=== PATIENT | male | born 1950 | race Caucasian/White ===

== ENCOUNTER 2018-05-11 07:36 | Observation (INO) | payer MEDICARE, OTHER ==
[2018-05-11] VITALS (16 sets, daily range): BP systolic 119–171; BP diastolic 60–93
[~2018-05-11] VITALS: Ht 175.3 cm; Wt 114.3 kg
--- NOTE | ~2018-05-11 | H ---
[address] [address] HISTORY AND PHYSICAL Name: AARON RAPP Room: [address] Yesica Peterson#: [id number] Admission: 05/11/18 Attend Phys: Scar Summers MD, Discharge: 05/12/18 Date of : 50 Report #: [id number] THIS REPORT FOR: //name// Please refer to the History and Physical performed in the physician's office. By: [id number] Records Staff BRIAN /JEN
[~2018-05-11 07:36] MED LIST: ALLOPURINOL 30300 M1 PO; ASPIRIN81 M2; B12INJ; CENTRUM SILVER1 EAC2 PO; COLACE100 MG PO; COQ-10100 MG PO; ELIQUIS5 MG PO; GLUCOSAMINE HC500 MG PO; HYDROCODON-ACE1 EACH; HYDROXYCHLOROQ200 M1 PO; LISINOPRIL-HCT1 EAC2 PO; LISINOPRIL20 MG PO; LOPRESSOR25 PO; MULTAQ 400 MG400 MG PO; MULTAQ400 MG PO; NITROGLYCERIN0.4 MG SUBLING; OMEGA 3 FISH O1 EACH PO; OXYCODONE HCL 55 MG PO; PEPCID40 MG PO; POTASSIUM GLUCO99 M1 PO; PRAVACHOL40 MG PO; SIMVASTATIN40 MG; TART CHERRY E1000 MG PO; TURMERIC500 M1 PO; VITAMIN D2000 UNIT PO
[2018-05-11 08:08] LABS: HEMATOCRIT 42.2 % (42.0-52.0); HEMOGLOBIN 14.4 gm/dL (14.0-18.0); MCH 33.9 pg (26.0-34.0); MCHC 34.2 g/dL (28.0-37.0); MCV 99.1 fL (80.0-100.0); MPV 7.5 fl. (7.2-11.1); RBC 4.26 mil/uL (4.50-6.00); RDW-CV 12.3 % (10.5-14.5)
[2018-05-11 08:13] LABS: ANION GAP 10 mmol/L (7-16); BUN 17 mg/dL (7-18); CALCIUM 8.7 mg/dL (8.5-10.1); CHLORIDE 104 mmol/L (98-107); CO2 25 mmol/L (21-32); CREATININE 1.1 mg/dL (0.6-1.3); GLUCOSE 118 mg/dL (70-99); POTASSIUM 4.3 mmol/L (3.5-5.1); SODIUM 139 mmol/L (136-145)
[2018-05-11 08:16] LABS: APTT 30.7 Seconds (25.0-31.3)
[2018-05-11 08:17] LABS: ALBUMIN 3.8 g/dL (3.4-5.0); ALKALINE PHOSPHATASE 72 U/L (46-116); CHOLESTEROL 144 mg/dL (<200); HDL CHOLESTEROL 43 mg/dL (>40); LDL CHOLESTEROL 82 mg/dL (<100); SGOT 23 U/L (15-37); SGPT 34 U/L (30-65); TC:HDL 3.3 Ratio (Not establshd); TOTAL BILIRUBIN 0.7 mg/dL (<0.1-1.0); TOTAL PROTEIN 7.6 g/dL (6.4-8.2); TRIGLYCERIDE 98 mg/dL (<150); VLDL 20 mg/dL (<40)
[2018-05-11 08:20] LABS: SERUM ASSESSMENT Clear
[2018-05-11] MEDS ORDERED: GLUCOSAMINE HC500 MG PO (12:45)
[2018-05-11] MEDS ORDERED: OMEGA-31000 M1 PO (12:46)
[2018-05-11] MEDS ORDERED: VITAMIN B-121000 MCG PO (12:47)
--- NOTE | 2018-05-11 16:29 | EKG ---
[place] [address] ELECTROCARDIOGRAM REPORT Name: AARON RAPP Room: [address] M.R.#: [id number] Admission: 05/11/18 Attend Phys: Scar Summers MD, Discharge: Date of : 50 Report #: [id number] THIS REPORT FOR: //name// [facility] Test Date: 2018-05-11 Test Time: 08:52:10 Pat Name: AARON CRAWFORDB Department: Room: [facility] Gender: M Picu Nurse: : 1950 Requested By: Scar Summers Order Number: [id number] Natan MD: Scar Summers Measurements Intervals [place] Rate: 49 P: 45 HI: 204 QRS: 29 QRSD: 96 T: 10 QT: 480 QTc: 434 Interpretive Statements Sinus bradycardia Compared to ECG 11/12/2016 13:40:38 Sinus rate has decreased Electronically Signed On 05-11-2018 16:29:14 CDT by Scar Summers [email or web address] <ELECTRONICALLY SIGNED> By: Scar Summers MD, [facility] 05/11/18 1629 0852 0852 Scar Summers MD, FACC /EPI
--- NOTE | 2018-05-11 16:31 | EKG ---
[place] [address] ELECTROCARDIOGRAM REPORT Name: AARON RAPP Room: [address] M.R.#: [id number] Admission: 05/11/18 Attend Phys: Scar Summers MD, Discharge: Date of : 50 Report #: [id number] THIS REPORT FOR: //name// 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 Species Specialist: : 1950 Requested By: Scar Summers Order Number: [id number] Natan MD: Scar Summers Measurements Intervals [place] Rate: 52 P: 60 [place]: 198 QRS: 17 QRSD: 96 T: 8 QT: 466 QTc: 434 Interpretive Statements Sinus rhythm Probable left ventricular hypertrophy Baseline wander in lead(s) II Compared to ECG 11/12/2016 13:40:38 No significant changes Electronically Signed On 05-11-2018 16:31:37 CDT by Scar Summers [email or web address] <ELECTRONICALLY SIGNED> By: Scar Summers MD, [facility] 05/11/18 1631 1345 1345 Scar Summers MD, [facility] /EPI
[2018-05-12] VITALS: BP 158/65
[2018-05-12 04:00] VITALS: BP 161/75
[2018-05-12 05:01] LABS: HEMATOCRIT 39.6 % (42.0-52.0); HEMOGLOBIN 13.7 gm/dL (14.0-18.0); MCH 34.2 pg (26.0-34.0); MCHC 34.5 g/dL (28.0-37.0); MPV 7.1 fl. (7.2-11.1); RDW-CV 12.6 % (10.5-14.5); WBC 7.3 thou/uL (4.0-11.0)
[2018-05-12 05:53] LABS: ALBUMIN 3.4 g/dL (3.4-5.0); ALKALINE PHOSPHATASE 54 U/L (46-116); ANION GAP 8 mmol/L (7-16); BUN 14 mg/dL (7-18); CHLORIDE 107 mmol/L (98-107); CO2 25 mmol/L (21-32); CREATININE 1.1 mg/dL (0.6-1.3); GLUCOSE 106 mg/dL (70-99); POTASSIUM 4.2 mmol/L (3.5-5.1); SGOT 22 U/L (15-37); SGPT 31 U/L (30-65); SODIUM 140 mmol/L (136-145); TOTAL BILIRUBIN 0.7 mg/dL (<0.1-1.0); TROPONIN-I LEVEL <0.06 ng/mL (<0.06)
--- NOTE | 2018-05-12 05:58 | NUR ---
ASSUMED PT CARE REPORT RECEIVED FROM NURSE. PT IS POST CARDIAC CATH. RIGHT WRIST DRESSING IN INTACT WITH A VERY SCANT AREA OF BLOOD AND IT IS CLEAN. NS AT 100 PER HOUR IV LINE IS PATENT. PT SLEPT WELL DURING THE NIGHT. SBRADY ON THE MONITOR SINCE THE BEGINNING OF SHIFT, METROPOLOL DOSE NOT GIVEN LAST NIGHT FOR LOW HR. WILL CONTINUW TO MONITOR.
[2018-05-12 07:32] VITALS: BP 140/67
[2018-05-12] MEDS ORDERED: EFFIENT10 MG PO (09:52)
[2018-05-12] MEDS ORDERED: ASPIR-LOW81 MG PO (09:53)
--- NOTE | 2018-05-12 10:47 | EKG ---
[place] [address] ELECTROCARDIOGRAM REPORT Name: AARON RAPP Room: [address] M..#: [id number] Admission: 05/11/18 Attend Phys: Scar Summers MD, Discharge: 05/12/18 Date of : 50 Report #: [id number] THIS REPORT FOR: //name// [facility] Test Date: 2018-05-12 Test Time: 08:55:37 Pat Name: AARON RAPP Department: Room: [facility] Gender: M Baler Operator: : 1950 Requested By: Scar Summers Order Number: [id number] Reading MD: Boone Rodriguez Measurements Intervals [place] Rate: 58 P: 43 MS: 182 QRS: 19 QRSD: 94 T: 9 QT: 456 QTc: 448 Interpretive Statements Sinus rhythm Borderline ST elevation, anterior leads Compared to ECG 05/11/2018 13:45:56 ST (T wave) deviation now present Electronically Signed On 05-12-2018 10:47:09 CDT by Boone Rodriguez [email or web address] <ELECTRONICALLY SIGNED> By: Boone Rodriguez MD, FACC 05/12/18 1047 0855 0855 Boone Rodriguez MD, [facility] /EPI
--- NOTE | 2018-05-12 10:55 | CARD ---
[address] [address] CARDIAC CATH REPORT Name: AARON RAPP Floridalma Room: [address] Yesica Peterson#: [id number] Admission: 05/11/18 Attend Phys: Scar Summers MD, Discharge: 05/12/18 Date of : 50 Report #: [id number] THIS REPORT FOR: //name// APPROVED REPORT Study performed: 05/11/2018 08:02:19 Patient Details Patient Status: Out-Patient Room #: The patient is a 67 year-old male Event Personnel Scar Summers Chipper Feeder, Jennifer Rodriguez RN Molder, Geneva Woodard RTR Monitor, Db Brennan Scrub Procedures Performed Art Access - R radial artery Coronary Angiography Only CORANG PTCA Single Vessel DIAG PCISINGLE Hemostasis with Hemoband Indication Unstable angina Risk Factors Coronary Artery Disease Previous Procedures/Diagnoses Previous PCI Admission/Lab Medications/Medications given during procedure Aspirin, Angiomax IV 17 ml, Angiomax Drip IV 40 ml per hr, Aspirin PO 162 mg, Heparin IV 5000 units Procedure Narrative The patient was brought electively to the Cardiac Catheterization Laboratory and was prepped and draped in a sterile manner. The right wrist was infiltrated with 2% Lidocaine subcutaneous anesthesia. A Slender Glidesheath sheath was inserted into the right radial artery. Coronary angiography was performed using coronary diagnostic catheters. The left coronary system was accessed and visualized with a Diagnostic 5Fr JL 3.5 catheter. The left ventricle was accessed and visualized with a Diagnostic 5Fr pigtail catheter. Left ventricular/Aortic Valve gradient assessed via catheter pullback. The patient tolerated the procedure well and there were no complications associated with the procedure. [place] [address] CARDIAC CATH REPORT Name: AARON RAPP [address]: [address] [id number] Admission: 05/11/18 Attend Phys: Scar Summers MD, Discharge: 05/12/18 Date of : 50 Report #: [id number] Intraoperative Conscious Sedation Sedation start time: 9:42 Case end Time: 10:25 Fentanyl 50 mcg Versed 2 mg Fluoro Time: 10.5 minutes Dose: DAP 339193 cGycm2 2330 mGy Contrast Type and Amount: Visipaque 350 ml Diagnostic Cath Left Main 0% narrowing LAD 30% proximal mid and distal LAD narrowings with 90% stenosis in the midportion of the prominent second diagonal branch and 40% first diagonal narrowing Circumflex Dominant vessel with 30% proximal and distal narrowing with 30% narrowing of the posterior descending branch Right Coronary Previously defined small nondominant vessel without significant narrowing Left Ventriculography The left ventricle is normal in size with normal contractility. The left ventricular ejection fraction is estimated to be 60%. Left ventricular wall motion abnormalities are not present. There is no mitral insufficiency. Hemodynamics The aortic pressure is 124/68 mmHg with a mean of 91 mmHg. The left ventricular pressure is 130/4 mmHg with a mean of mmHg. The left ventricular end diastolic pressure is 13 mmHg. PCI Technique Lesion Anticoagulation was achieved with Angiomax. Percutaneous coronary intervention was performed on the second diagnonal branch segment. The lesion stenosis prior to intervention was 90% with PRIYA 3 flow. A 6F XB LAD 3.5 Guide Catheter was used to engage the ostium. A IG: DinnrFlex 180CM Interventional Guidewire was used to cross the lesion. BALLOON DILATION A Balloon catheter Mini Trek RX 2.0 X 8 was inserted and inflated up to 12.00atm for 12seconds. STENT DEPLOYMENT A drug-eluting stent Elias RX Stent 2.0X12mm was inserted and inflated up to 12.00atm for 11seconds. Additional Inflation: 15.00[place] [address] CARDIAC CATH REPORT Name: AARON RAPP [address]: [address]#: [id number] Admission: 05/11/18 Attend Phys: Scar Summers MD, Discharge: 05/12/18 Date of : 50 Report #: [id number] 8seconds. Additional Inflation: 16.00atm for 10seconds. Final angiography reveals 0 % stenosis with PRIYA 3 flow. Conclusion #1 significant coronary artery disease characterized by the following: A 30% proximal mid and distal LAD narrowing with 90% stenosis the midportion of the second diagonal branch and 40% first diagonal narrowing B dominant circumflex with 30% proximal and distal narrowing and 30% narrowing of the posterior descending branch C small nondominant right coronary artery #2 normal left ventricular function, estimated ejection fraction being 60% #3 successful percutaneous coronary intervention with deployment of a drug-eluting stent at site of 90% second diagonal stenosis with 0% residual narrowing and PRIYA-3 flow the distal vessel Recommendations Aggressive Medical Therapy Medications Administered Aspirin (any) Prasugrel Diagnostic Cath Approved by: Scar Summers MD Date/Time: 05/12/2018 10:54:46 <ELECTRONICALLY SIGNED> By: Scar Summers MD, [facility] 05/12/18 1055 1055 1055Scar Summers MD, FAC /INF
[2018-05-12 10:57] VITALS: BP 171/93
--- NOTE | 2018-05-21 13:03 | D ---
[address] [address] DISCHARGE SUMMARY Name: AARON RAPP Room: [address] Yesica Peterson#: [id number] Admission: 05/11/18 Attend Phys: Scar Summers MD, Discharge: 05/12/18 Date of : 50 Report #: [id number] THIS REPORT FOR: //name// CC: Dru Summers DATE OF SERVICE: 05/12/2018 FINAL DISCHARGE DIAGNOSES: 1. Coronary artery disease. 2. Status post percutaneous coronary intervention of the second diagonal branch of the left anterior descending. 3. Paroxysmal atrial fibrillation. 4. Hypertension. 5. Hyperlipoproteinemia. 6. Gastroesophageal reflux disease. PROCEDURES: 05/11/2018 -- left heart catheterization, selective coronary arteriography and percutaneous coronary intervention to the second diagonal branch of the LAD. The patient is a 67-year-old male with known coronary artery disease by prior catheterization. He also has paroxysmal atrial fibrillation. He notes with tachycardia, he developed central chest discomfort compatible angina and has noted relatively frequent episodes of late. Prior catheterization demonstrated 90% second diagonal stenosis, which was not approached in a preoperative setting. He has continued to have relatively frequent episodes of angina in the context of hypertension and hyperlipoproteinemia and in that clinical history, cardiac catheterization was performed on 05/31/2018. That study revealed mild LAD, circumflex, and right coronary narrowings with 90% stenosis of the mid portion of the second diagonal branch of the LAD. I deployed one 2.0 x 12 mm Integrity Elias stent in the second diagonal with 0% residual narrowing and PRIYA 3 flow of the distal vessel. He did well post-procedurally with good hemostasis at the right radial site of catheterization. Laboratory on 05/12/2018 revealed a sodium 140, potassium 4.2, BUN 14, creatinine 1.1, hemoglobin 13.7, white blood cell count 7300, with 169,000, platelets. Troponin less than 0.06. The patient ambulated in the hallways without difficulty and was discharged to home on 05/12/2018 on the following medications: Apixaban 5 mg b.i.d., aspirin 81 mg daily, vitamin D3 5000 units daily, vitamin B12 1000 mcg daily, dronedarone or Multaq 400 mg b.i.d., famotidine or Pepcid 20 mg daily, glucosamine 1500 mg t.i.d., hydroxychloroquine 400 mg daily, lisinopril 20 [place] [address] DISCHARGE SUMMARY Name: AARON RAPP [address] [id number] Admission: 05/11/18 Attend Phys: Scar Summers MD, Discharge: 05/12/18 Date of : 50 Report #: [id number] daily, metoprolol tartrate 25 mg b.i.d., Centrum Silver vitamin one tablet daily, omega-3 fatty acids 1000 mg b.i.d., potassium gluconate one tablet at bedtime, prasugrel or Effient 10 mg daily, and pravastatin 40 mg at bedtime. He also has p.r.n. sublingual nitroglycerin and p.r.n. oxycodone if required. The patient is scheduled to return to see Dr. Kee on 06/21/2018 and 1530 hours. Thus, the patient is discharged to home in stable condition on the aforementioned medications with followup as iterated above. <ELECTRONICALLY SIGNED> By: Aung Kee MD, [facility] 05/21/18 1303 0936 1228Jojonah Summers MD, FACC /nt
== END 2018-05-12 10:35 | disposition home or self-care (01) ==
LOC: M.CL 07:36 → M.TBA-CV 10:52 → M.2W 12:17
PROVIDERS: ADMIT Internal Medicine
DX: I25.110 Atherosclerotic heart disease of native coronary artery with unstable angina pectoris (principal); I48.0 Paroxysmal atrial fibrillation; I10 Essential (primary) hypertension; K21.9 Gastro-esophageal reflux disease without esophagitis; E78.5 Hyperlipidemia, unspecified

== ENCOUNTER 2018-05-13 00:24 | Inpatient (IN) | payer MEDICARE, OTHER ==
[2018-05-13] VITALS (9 sets, daily range): BP systolic 101–145; BP diastolic 47–83
[~2018-05-13] VITALS: Ht 152.4 cm; Wt 109.8 kg
--- NOTE | ~2018-05-13 | EKG ---
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
[~2018-05-13 00:24] MED LIST changes: +ASPIR-LOW81 MG PO; +EFFIENT10 MG PO; +OMEGA-31000 M1 PO; +VITAMIN B-121000 MCG PO
[2018-05-13 00:55] LABS: ABSOLUTE BASOPHILS 0.1 thou/uL (0.0-0.2); ABSOLUTE EOSINOPHILS 0.1 thou/uL (0.0-0.7); ABSOLUTE LYMPHOCYTES 1.7 thou/uL (0.8-5.3); ABSOLUTE MONOCYTES 1.2 thou/uL (0.0-1.2); ABSOLUTE NEUTROPHILS 7.1 thou/uL (1.6-8.1); BASOPHILS 0.7 %; EOSINOPHILS 1.3 %; HEMATOCRIT 43.2 % (42.0-52.0); HEMOGLOBIN 15.1 gm/dL (14.0-18.0); LYMPHOCYTES 16.6 %; MCH 34.1 pg (26.0-34.0); MCHC 34.8 g/dL (28.0-37.0); MCV 97.8 fL (80.0-100.0); MONOCYTES 12.2 %; MPV 7.1 fl. (7.2-11.1); NUCLEATED RBCS 0 /100WBC; PLATELET COUNT* 225 thou/uL (150-400); POLYS 69.2 %; RBC 4.42 mil/uL (4.50-6.00); RDW-CV 12.4 % (10.5-14.5); WBC 10.2 thou/uL (4.0-11.0)
[2018-05-13 00:58] LABS: ANION GAP 9 mmol/L (7-16); BUN 16 mg/dL (7-18); CALCIUM 8.8 mg/dL (8.5-10.1); CHLORIDE 103 mmol/L (98-107); CO2 23 mmol/L (21-32); CREATININE 1.2 mg/dL (0.6-1.3); GLUCOSE 113 mg/dL (70-99); POTASSIUM 3.8 mmol/L (3.5-5.1); SODIUM 135 mmol/L (136-145)
[2018-05-13 01:05] LABS: PROTIME 10.4 Seconds (9.20-11.50)
[2018-05-13 01:09] LABS: ALKALINE PHOSPHATASE 70 U/L (46-116); NT-PRO BRAIN NAT PEPTIDE 1766 pg/mL (<300); SGOT 25 U/L (15-37); SGPT 33 U/L (30-65); TOTAL PROTEIN 7.7 g/dL (6.4-8.2)
[2018-05-13 01:27] LABS: TROPONIN-I LEVEL <0.06 ng/mL (<0.06)
--- NOTE | 2018-05-13 04:39 | NUR ---
PT ADMITTED ON TELE FLOOR AT 0330 THIS AM ACCOMPANIED BY AND ER NURSE. PT IS ALERT AWAKE ORIENTED X 4. VITAL SIGNS WITHIN NORMAL LIMIT EXCEPT HR. ON CARDIZEM DRIP 10MG AFIB ON ENTRY LEVEL PARALEGAL ON O2 2 L NC. ASYMPTOMATIC. DENIES PAIN. UP AD REYES. IV NS AT 100 CC PER HOUR STARTED ORDERED. PT MADE COMFORTAFBLE. ADMISSION ASSESSEMENT AND HISTORY PERFORMED. REFER TO CHARTING. PT IS CURRENTLY ON CPAP WHICH HE WEARS REGULARLY AT HOME WHILE ASLEEP. LETA CONTINUE TO MONITOR.
--- NOTE | 2018-05-13 06:16 | NUR ---
CARDIOLOGY CONSULT DR BARNEY ORDERED EKG , SOTOLOL 80 MG BID. AND D/C METROPOLO. WILL PROCEED ORDERED.
--- NOTE | 2018-05-13 06:35 | NUR ---
EKG SHOWS SINUS RYTHM AT 0600. CARDIZEM DRIP LOWERED TO 5MG. SOTOLOL GIVEN.
--- NOTE | 2018-05-13 12:49 | EKG ---
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: HAYLEE : 1950 Requested By: Georgiana Holcomb Order Number: [id number] MD: Alvaro Leon Measurements Intervals [place] Rate: 136 P: OR: QRS: 25 QRSD: 87 T: 22 QT: 319 QTc: 480 Interpretive Statements Atrial fibrillation LVH with secondary repolarization abnormality Borderline prolonged QT interval Compared to ECG 05/12/2018 08:55:37 Left ventricular hypertrophy now present Early repolarization now present Sinus rhythm no longer present ST (T wave) deviation no longer present Electronically Signed On 05-13-2018 12:49:02 CDT by Alvaro Leon [email or web address] <ELECTRONICALLY SIGNED> By: Umberto Leon MD, [facility] 05/13/18 1249 0030 0030 Umberto Leon MD, [facility] /EPI
--- NOTE | 2018-05-13 12:50 | EKG ---
[place] [address] ELECTROCARDIOGRAM REPORT Name: AARON RAPP Room: [address] ADM IN M.R.#: [id number] Admission: 05/13/18 Attend Phys: Db Lyons MD Discharge: Date of : 50 Report #: [id number] THIS REPORT FOR: //name// [facility] Test Date: 2018-05-13 Test Time: 06:31:42 Pat Name: AARON RAPP Department: Room: [address] Gender: M Service Rig Operator: : 1950 Requested By: Umberto Leon Order Number: [id number] Reading MD: Alvaro Leon Measurements Intervals [place] Rate: 62 P: 35 [place]: 195 QRS: 28 QRSD: 89 T: 29 QT: 442 QTc: 449 Interpretive Statements Sinus rhythm Borderline ST elevation, anterolateral leads Baseline wander in lead(s) V2 Compared to ECG 05/12/2018 08:55:37 No significant changes Electronically Signed On 05-13-2018 12:50:36 CDT by Alvaro Leon [email or web address] <ELECTRONICALLY SIGNED> By: Umberto Leon MD, [facility] 05/13/18 1250 0631 0631 Umberto Leon MD, [facility] /EPI
--- NOTE | 2018-05-13 16:23 | NUR ---
CARDIZEM GTT STOPPED AT 0730 PT HEART RATE IN 50'S. CARDIOLOGY NOTIFIED. HR IN 50'S - 60'S THIS SHIFT. VSS. LISINOPRIL HELD DUE TO LOW BP. PT AMBULATING INDEPENDENLY.
--- NOTE | 2018-05-13 17:23 | NUR ---
ORTHOSTATIC BP OBTAINED AND CHARTED. ORTHOSTATIC BP NEGATIVE.
[2018-05-14] VITALS: BP 140/63
[2018-05-14 04:00] VITALS: BP 136/67
[2018-05-14 05:12] LABS: CALCIUM 8.3 mg/dL (8.5-10.1); CREATININE 1.1 mg/dL (0.6-1.3); MAGNESIUM 2.2 mg/dL (1.8-2.4); POTASSIUM 4.1 mmol/L (3.5-5.1)
--- NOTE | 2018-05-14 05:33 | NUR ---
ASSUMED PT CARE REPORT RECEIVED FROM NURSE. PT IS ALERT AWAKE ORIENTED X 4. SINUS RYTHM ON THE MONITOR. IV LINE PATENT SL. VITAL SIGNS ARE WITHIN NORMAL LIMIT. UP AD REYES. S SAQIB ON THE SPD TECH. SOTOLOL LOAD GIVEN ORDERED. PT SLEPT WELL DURING NIGHT
[2018-05-14 08:00] VITALS: BP 135/63
--- NOTE | 2018-05-14 11:01 | EKG ---
[place] [address] ELECTROCARDIOGRAM REPORT Name: AARON RAPP Room: [address] ADM IN M.R.#: [id number] Admission: 05/13/18 Attend Phys: Db Lyons MD Discharge: Date of : 50 Report #: [id number] THIS REPORT FOR: //name// [facility] Test Date: 2018-05-14 Test Time: 07:56:42 Pat Name: AARON RAPP Department: Room: [address] Gender: M Product Director: : 1950 Requested By: Umberto Leon Order Number: [id number] Reading MD: Alvaro Leon Measurements Intervals [place] Rate: 51 P: 42 RI: 187 QRS: 22 QRSD: 95 T: 47 QT: 500 QTc: 461 Interpretive Statements Sinus rhythm Borderline ST elevation, anterior leads Compared to ECG 05/13/2018 06:31:42 No significant changes Electronically Signed On 05-14-2018 11:01:28 CDT by Alvaro Leon [email or web address] <ELECTRONICALLY SIGNED> By: Umberto Leon MD, [facility] 05/14/18 1101 0756 0756 Umberto Leon MD, [facility] /EPI
--- NOTE | 2018-05-14 11:20 | CON ---
[address] [address] CONSULTATION Name: AARON RAPP Room: [address] IN .R.#: [id number] Admission: 05/13/18 Attend Phys: Db Lyons MD Discharge: Date of : 50 Report #: [id number] THIS REPORT FOR: //name// CC: Dru Lyons DATE OF SERVICE: 05/13/2018 HISTORY OF PRESENT ILLNESS: I was asked by Dr. Lyons to see this 67-year-old white male in cardiology consultation for evaluation and treatment of paroxysmal atrial fibrillation. This man has known coronary artery disease. He is status post coronary stent on 05/11/2018. He was admitted at that time electively for a coronary stent. Dr. Summers placed a coronary stent in his second diagonal branch of the LAD in the mid portion of that branch. He had that because this man has been having episodes of angina that probably were mostly related to paroxysmal atrial fibrillation. He said he always had a high heart rate when he had these episodes and he noticed that his heart rate was irregular. They could occur at rest or with exertion. He had only mild coronary disease in the LAD, circumflex, and right coronary. He was sent home from the hospital yesterday. He said he did not receive his Multaq in the morning. When he got home, he had another episode of atrial fibrillation, but without the usual angina pain. He said he just noticed his heart racing and he took a Multaq and ultimately his heart rate came down, but then later in the evening, he had another episode and it was associated with some mild anginal pain but his heart was racing quite a bit. He took another Multaq. When the tachycardia failed to go away, he came to the hospital, was found to be in atrial fibrillation. He had been in sinus rhythm yesterday when he left the hospital. His heart rate when he came in last night was 136. He was placed on a diltiazem drip and his heart rate was slowed. He ultimately converted to sinus rhythm this morning, but I believe it was after he had received a dose of 80 mg of sotalol. He has had no further episodes. This man does have essential hypertension and hyperlipidemia and GERD. PAST MEDICAL HISTORY: As described above includes the coronary artery disease, previous stent, paroxysmal atrial fibrillation, essential hypertension, hyperlipidemia and GERD. HOME MEDICATIONS: Eliquis 5 mg b.i.d., aspirin 81 mg daily, vitamin D3 5000 units daily, B12 1000 mcg daily, Multaq 400 mg b.i.d., Pepcid 20 mg daily, glucosamine 1500 mg t.i.d., hydroxychloroquine 400 mg daily, lisinopril 20 mg daily, metoprolol tartrate 25 mg b.i.d., Centrum Silver 1 a day, omega-3 1000 b.i.d., potassium gluconate one tablet at bedtime presumably 20 mEq. At this time, he is also on Effient 25 mg daily. I do not see a record of diabetes. He has p.r.n. nitroglycerin and p.r.n. oxycodone as well at home. He also takes Pravastatin 40 mg at bedtime. [address] [place] [address] CONSULTATION Name: AARON RAPP Room: [address] IN M.R.#: [id number] Admission: 05/13/18 Attend Phys: Db Lyons MD Discharge: Date of : 50 Report #: [id number] ALLERGIES: He has no known allergies. REVIEW OF SYSTEMS: Essentially as per the history of present illness and past medical history and he has no other symptoms. Please see our review of system form for details and negatives in review of systems, some 17 systems were reviewed with some 50 different symptoms. SOCIAL HISTORY: He is and he does smoke cigarettes, does not drink or use illegal drugs. He is retired. FAMILY HISTORY: Remarkable for coronary artery disease. PHYSICAL EXAMINATION: GENERAL: He presents as a well-developed, well-nourished white male in no acute distress. VITAL SIGNS: Pulse was 70 and regular, blood pressure was 120/80, respirations are 16 and regular. He is clinically afebrile. HEENT: His head is atraumatic. Eyes clear. NECK: Supple. There is no jugular venous distention or hepatojugular reflux. Thyroid is not enlarged. There is no adenopathy. SKIN: Warm and dry. MOUTH: Mucous membranes are moist. LUNGS: Clear to auscultation and percussion. HEART: Revealed normal first and second heart sounds. There is soft S4. There is no S3. There are no murmurs, rubs, thrills, heaves or gallops. PMI is nondisplaced. ABDOMEN: Soft, flat, nontender, no palpable masses, no organomegaly. EXTREMITIES: Reveal no cyanosis, clubbing or edema. DIAGNOSTIC DATA: EKG done earlier this morning reveals sinus rhythm, heart rate was 62. Otherwise, is essentially a normal EKG. IMPRESSION: 1. Paroxysmal atrial fibrillation that is not controlled with Multaq. 2. Coronary artery disease. 3. Status post coronary stent. 4. Essential hypertension. 5. Hyperlipidemia. 6. Gastroesophageal reflux disease. RECOMMENDATION: He has been started on sotalol and the Multaq has been discontinued. He will be continued on aspirin, Effient and Eliquis. He will be continued on [place]isinopril [place] [address] CONSULTATION Name: AARON RAPP Room: [address] IN [facility].#: [id number] Admission: 05/13/18 Attend Phys: Db Lyons MD Discharge: Date of : 50 Report #: [id number] Thank you very much for asking me to see this patient. If there are any questions, please feel free to contact me. <ELECTRONICALLY SIGNED> By: Umberto Leon MD, [facility] 05/14/18 1120 1234 1618F. Alvaro Leon MD, [facility] /nt
[2018-05-14 12:00] VITALS: BP 118/62
[2018-05-14 16:13] VITALS: BP 139/61
--- NOTE | 2018-05-14 18:57 | NUR ---
ASSUMED CARE OF PT AT 0730. PT HAS REMAINED A&O X4 VSS ON ROOM AIR AND TRACING SR ON THE MONITOR. C/O PAIN CONTROLLED WITH PRN MEDS. PT UP AD REYES TO THE BATHROOM AND HAS BEEN AMBULATING IN THE HALLS. PT HR IS UP TO 110 SINCE HAVING DINNER AND REPORTING HEART BURN THAT THE PT RELATES TO EATING THE MEATLOAF FOR DINNER. WILL TREAT HEARTBURN AND MONITOR CLOSELY.
[2018-05-14 19:45] VITALS: BP 165/95
[2018-05-15] VITALS: BP 110/89
[2018-05-15 04:00] VITALS: BP 95/67
--- NOTE | 2018-05-15 05:05 | NUR ---
ASSUMED CARE AT 1945, ASSESSMENT CHARTED. PATIENT ALERT/ORIENTED X4, SITTING UP IN BED TALKING WITH FAMILY AT SIDE. ON TELE, AFIB WITH RATE 100-130'S. HS MEDS GIVEN PER MAR WITH NO RELIEF NOTED. DR. CALDWELL NOTIFIED AT 2200 REGARDING HR, INCREASED SOTALOL WITH DOSE GIVEN AT THIS TIME PER MAR. UP AD REYES IN ROOM. DENIES PAIN OR NEEDS. CALL LIGHT WITHIN REACH, ENCOURAGED TO CALL FOR NEEDS.
--- NOTE | 2018-05-15 05:17 | NUR ---
HR REMAINS 100-120'S. PATIENT CONTINUES TO DENY PAIN. WILL MONITOR.
[2018-05-15 07:59] VITALS: BP 101/66
--- NOTE | 2018-05-15 09:23 | NUR ---
ASSUMED CARE OF PT THIS AM AROUND 0715- WELL CONTROL INSTRUCTOR IN PLACE ORDERED, TRACING A-FIB- UPON ASSESSMENT PT NOTED TO BE RESTING IN BED- PT A&O X4- CONTINENT OF BOWEL AND BLADDER- UP AD-REYES WITH STEADY GAIT NOTED-LCTA, RESP EVEN AND UN-LABORED- VSS, O2 SAT 98% ON RA- ABDOMEN SOFT/ROUND/NON-TENDER, BS X4 QUADS- PT REPORTS BM OVERNIGHT- TRACE EDEMA NOTED TO BLE- IV NOTED TO LEFT AC INTACT AND SL- PT UP TO CHAIR THIS AM WITH BREAKFAST, GOOD PO INTAKE NOTED THIS AM- SOTALOL LOADING NOTED- PT DENIES ANY C/O PAIN/DISCOMFORT AT THIS TIME- CALL LIGHT AND PERSONAL BELONGINGS WITH IN REACH- HOURLY ROUNDS IN PLACE R/T SAFETY/NEEDS- ALL NEEDS MET AT THIS TIME-WCTM
[2018-05-15 11:54] VITALS: BP 113/66
--- NOTE | 2018-05-15 13:03 | 2DMMODE ---
[place] [address] 2 D/M-MODE ECHOCARDIOGRAM Name: AARON RAPP Room: [address] IN .R.#: [id number] Admission: 05/13/18 Attend Phys: Db Lyons, Discharge: Date of : 50 Date of Service: 05/15/18 1302 Report #: [id number] THIS REPORT FOR: //name// APPROVED REPORT Study performed: 05/15/2018 10:58:23 EXAM: Comprehensive 2D, Doppler, and color-flow Echocardiogram Patient Location: Bedside BSA: 2.28 HR: 105 bpm BP: 101/66 mmHg Other Information Study Quality: Good Indications Murmur Atrial Fibrillation 2D Dimensions LVEF(%): 55.21 (>50%) IVSd: 15.41 (7-11mm) LVOT Diam: 21.06 (18-24mm) LVDd: 45.49 mm PWd: 15.90 (7-11mm) Ascending Ao: 38.76 (22-36mm) LVDs: 32.48 (25-40mm) Aortic Root: 36.54 mm Rodriguez's LVEF: 55.21 % Volumes Left Atrial Volume (Systole) LA ESV Index: 29.70 mL/m2 Aortic Valve AoV Peak Bashir.: 2.47 m/s AO Peak Gr.: 24.38 mmHg LVOT Max P.50 mmHg AO Mean Gr.: 13.36 mmHg LVOT Mean P.25 mmHg LVOT Max V: 1.37 m/s AO V2 VTI: 41.88 cm LVOT Mean V: 0.99 m/s CADE (VTI): 2.17 cm2 LVOT V1 VTI: 26.14 cm AI [place]: 1.49 m/s2 AI PHT: 606.97 [place] [address] 2 D/M-MODE ECHOCARDIOGRAM Name: AARON RAPP Room: [address] IN .R.#: [id number] Admission: 05/13/18 Attend Phys: Db Lyons, Discharge: Date of : 50 Date of Service: 05/15/18 1302 Report #: [id number] E/A Ratio: 2.64 MV Decel. Time: 136.75 ms MV E Max Bashir.: 0.86 m/s MV PHT: 39.66 ms MVA (PHT): 5.55 cm2 TDI E/Lateral E': 9.56 E/Medial E': 12.29 Medial E' Bashir.: 0.07 m/s Lateral E' Bashir.: 0.09 m/s Pulmonary Valve PV Peak Bashir.: 1.05 m/s PV Peak Gr.: 4.40 mmHg Tricuspid Valve RAP Estimate: 5.00 mmHg TR Peak Gr.: 25.85 mmHg RVSP: 30.85 mmHg PA Pressure: 30.85 mmHg Left Ventricle The left ventricle is normal size. There is normal LV segmental wall motion. Mild concentric left ventricular hypertrophy. Left ventricular systolic function is normal. The left ventricular ejection fraction is within the normal range. LVEF is 60-65%. Right Ventricle The right ventricle is normal size. The right ventricular systolic function is normal. Atria Left atrium is mildly dilated. The right atrium size is normal. Aortic Valve Aortic valve is calcified. Mild aortic regurgitation. Mild aortic stenosis. Mitral Valve There is mitral annular calcification. Mild mitral regurgitation. No evidence of mitral valve stenosis. Tricuspid Valve The tricuspid valve is normal in structure. Mild tricuspid regurgitation. estimated pa pressure 30 [place] [address] 2 D/M-MODE ECHOCARDIOGRAM Name: AARON RAPP Floridalma Room: [address] IN [facility]#: [id number] Admission: 05/13/18 Attend Phys: Db Lyons, Discharge: Date of : 50 Date of Service: 05/15/18 1302 Report #: [id number] The pulmonary valve is normal in structure. Trace pulmonic regurgitation. Great Vessels Aortic root is mildly dilated. IVC is not well visualized. Pericardium There is no pericardial effusion. <Conclusion> Mild concentric left ventricular hypertrophy. LVEF is 60-65%. Left atrium is mildly dilated. Mild aortic stenosis. Mild aortic regurgitation. Mild mitral regurgitation. <ELECTRONICALLY SIGNED> By: Fredo Gonzalez MD, FACC 05/15/18 1302 1302 Fredo Gonzalez MD, FACC /INF
--- NOTE | 2018-05-15 14:46 | NUR ---
Pt is A&O. Resides at home with , in room at bedside. Independent and active. Pt sleeps with a cpap, but does not use any other DME. No hx of HH. Hx of [facility]. Goal is to return home at dc, Pt anticipates that he will be ready to dc tomorrow. No needs anticipated. Following.
[2018-05-15 16:04] VITALS: BP 118/61
--- NOTE | 2018-05-15 16:04 | NUR ---
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
[2018-05-15 19:50] VITALS: BP 154/70
[2018-05-16 00:51] VITALS: BP 105/51; BP 123/67
--- NOTE | 2018-05-16 03:46 | NUR ---
ASSUMED CARE AT 1950, ASSESSMENT CHARTED. PATIENT ALERT/ORIENTED X4, SITTING UP IN CHAIR. ON TELE, SB WITH RATE IN LOW 50'S. HS SOTALOL HELD AT THIS TIME. UP AD REYES. DENIES PAIN OR NEEDS. REFUSING SCD'S. HOPES TO GO HOME IN AM. CALL LIGHT WITHIN REACH, ENCOURAGED TO CALL FOR NEEDS.
[2018-05-16 05:01] VITALS: BP 136/74
[2018-05-16 07:20] VITALS: BP 144/102
[2018-05-16 10:21] VITALS: BP 144/102
[2018-05-16] MEDS ORDERED: SORINE 80 MG TA80 M1 PO (10:28)
--- NOTE | 2018-05-16 11:16 | NUR ---
RECEIVED PT CARE 0700. HE IS ALERT AND ORIENTED X4. VSS. BEACH ATTENDANT TRACING SB. HEART RATE 50S. UP AD REYES IN ROOM. GAIT IS STEADY. CARDIOLOGY OK WITH DC TODAY. RECEIVED DC ORDERS PER DR HALEY. NEW SCRIPT FOR SOTALOL GIVEN WITH MED INFORMATION SHEETS. IV DISCONTINUED. BEACH ATTENDANT REMOVED AND RETURNED TO NURSE'S DESK. EDUCATED THE PT ON HOME MEDICATIONS AND F/U APPPOINTMENTS. HE DENIES ANY QUESTIONS OR CONCERNS AT DISCHARGE. HE IS LEAVING AMBULATORY PER HIS REQUEST AND HIS IS PROVIDING TRANSPORTATION.
[2018-05-16] MEDS ORDERED: EFFIENT10 MG PO (14:12)
--- NOTE | 2018-05-16 17:02 | EKG ---
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: ARCADIO WHITFIELD : 1950 Requested By: Db Lyons Order Number: [id number] Reading MD: Fredo Gonzalez Measurements Intervals [place] Rate: 56 P: 72 MS: 210 QRS: 16 QRSD: 93 T: 36 QT: 483 QTc: 467 Interpretive Statements Sinus bradycardia Consider left ventricular hypertrophy Compared to ECG 05/15/2018 08:14:23 Atrial fibrillation no longer present T-wave abnormality no longer present Electronically Signed On 05-16-2018 17:02:11 CDT by Fredo Gonzalez [email or web address] <ELECTRONICALLY SIGNED> By: Fredo Gonzalez MD, FAC 05/16/18 1702 1653 1653 Fredo Gonzalez MD, [facility] /EPI
--- NOTE | 2018-05-16 17:12 | EKG ---
[place] [address] ELECTROCARDIOGRAM REPORT Name: AARON RAPP Room: [address] DIS IN M.R.#: [id number] Admission: 05/13/18 Attend Phys: Db Lyons MD Discharge: 05/16/18 Date of : 50 Report #: [id number] THIS REPORT FOR: //name// [facility] Test Date: 2018-05-16 Test Time: 08:58:30 Pat Name: AARON CRAWFORDB Department: Room: [address] Gender: M Razor Grinder: : 1950 Requested By: Fredo Gonzalez Order Number: [id number] Natan MD: Fredo Gonzalez Measurements Intervals [place] Rate: 59 P: 59 IN: 202 QRS: 14 QRSD: 101 T: 36 QT: 472 QTc: 468 Interpretive Statements Sinus rhythm Probable left ventricular hypertrophy Anterior ST elevation, probably due to LVH Compared to ECG 05/15/2018 08:14:23 no change Electronically Signed On 05-16-2018 17:11:48 CDT by Fredo Gonzalez [email or web address] <ELECTRONICALLY SIGNED> By: Fredo Gonzalez MD, [facility] 05/16/18 1711 0858 0858 Fredo Gonzalez MD, [facility] /EPI
== END 2018-05-16 11:19 | disposition home or self-care (01) | DRG 309 ==
LOC: M.ERS 00:24 → M.TBA-ER 02:30 → M.2W 02:30
PROVIDERS: Emergency Medicine; ADMIT Internal Medicine
DX: I48.0 Paroxysmal atrial fibrillation (principal); Z68.42 Body mass index [BMI] 45.0-49.9, adult; I50.32 Chronic diastolic (congestive) heart failure; E66.01 Morbid (severe) obesity due to excess calories; M10.9 Gout, unspecified; I48.2 Chronic atrial fibrillation; I25.10 Atherosclerotic heart disease of native coronary artery without angina pectoris; I35.0 Nonrheumatic aortic (valve) stenosis; I11.0 Hypertensive heart disease with heart failure; G47.33 Obstructive sleep apnea (adult) (pediatric); Z96.651 Presence of right artificial knee joint; K21.9 Gastro-esophageal reflux disease without esophagitis; E78.5 Hyperlipidemia, unspecified; F17.210 Nicotine dependence, cigarettes, uncomplicated; I25.2 Old myocardial infarction; Z95.5 Presence of coronary angioplasty implant and graft; Z79.01 Long term (current) use of anticoagulants; Z79.82 Long term (current) use of aspirin; Z79.899 Other long term (current) drug therapy; Z82.49 Family history of ischemic heart disease and other diseases of the circulatory system

== ENCOUNTER 2019-05-31 01:39 | Observation (INO) | payer MEDICARE, OTHER ==
[2019-05-31] VITALS (7 sets, daily range): BP systolic 109–148; BP diastolic 60–83
[~2019-05-31] VITALS: Ht 172.7 cm; Wt 111.6 kg
[~2019-05-31 01:39] MED LIST changes: +SORINE 80 MG TA80 M1 PO
[2019-05-31] MEDS ORDERED: COQ-10100 MG PO (01:56)
[2019-05-31] MEDS ORDERED: TRIAMTERENE-HC1 EAC2 PO (01:57)
[2019-05-31] MEDS ORDERED: CURCUMIN1 GM PO (01:58)
[2019-05-31] MEDS ORDERED: ZYLOPRIM300 MG PO (01:59)
[2019-05-31] MEDS ORDERED: TART CHERRY E1000 MG PO (01:59)
[2019-05-31] MEDS ORDERED: IBUPROFEN 200200 M1 PO (01:59)
[2019-05-31] MEDS ORDERED: NORCO 5-325 TA1 EAC1 PO (02:00)
[2019-05-31] MEDS ORDERED: APAP650 PO (02:00)
[2019-05-31 02:05] LABS: ABSOLUTE EOSINOPHILS 0.2 thou/uL (0.0-0.7); ABSOLUTE LYMPHOCYTES 1.6 thou/uL (0.8-5.3); ABSOLUTE MONOCYTES 1.4 thou/uL (0.0-1.2); ABSOLUTE NEUTROPHILS 8.5 thou/uL (1.6-8.1); BASOPHILS 0.4 %; EOSINOPHILS 1.9 %; HEMATOCRIT 43.4 % (42.0-52.0); HEMOGLOBIN 15.2 gm/dL (14.0-18.0); LYMPHOCYTES 13.8 %; MCH 34.6 pg (26.0-34.0); MCHC 35.1 g/dL (28.0-37.0); MCV 98.6 fL (80.0-100.0); MONOCYTES 11.5 %; MPV 7.2 fl. (7.2-11.1); NUCLEATED RBCS 0 /100WBC; PLATELET COUNT* 147 thou/uL (150-400); POLYS 72.4 %; RDW-CV 13.7 % (10.5-14.5); WBC 11.8 thou/uL (4.0-11.0)
[2019-05-31 02:12] LABS: ANION GAP 10 mmol/L (7-16); BUN 21 mg/dL (7-18); CALCIUM 9.1 mg/dL (8.5-10.1); CHLORIDE 102 mmol/L (98-107); CO2 26 mmol/L (21-32); CREATININE 1.2 mg/dL (0.6-1.3); GLUCOSE 132 mg/dL (70-99); POTASSIUM 3.7 mmol/L (3.5-5.1); SODIUM 138 mmol/L (136-145)
[2019-05-31 02:16] LABS: APTT 29.1 Seconds (25.0-31.3); PROTIME 10.3 Seconds (9.20-11.50)
[2019-05-31 02:25] LABS: ALBUMIN 3.9 g/dL (3.4-5.0); ALKALINE PHOSPHATASE 81 U/L (46-116); CK-MB MASS 9.6 ng/mL (<0.5-3.6); LIPASE 246 U/L (73-393); NT-PRO BRAIN NAT PEPTIDE 846 pg/mL (<300); SGOT 39 U/L (15-37); SGPT 57 U/L (30-65); TOTAL BILIRUBIN 0.8 mg/dL (<0.1-1.0); TOTAL PROTEIN 7.1 g/dL (6.4-8.2); TROPONIN-I LEVEL <0.06 ng/mL (<0.06)
[2019-05-31] MEDS ORDERED: TURMERIC500 M2 PO (04:01)
--- NOTE | 2019-05-31 12:32 | 2DMMODE ---
[place] [address] 2 D/M-MODE ECHOCARDIOGRAM Name: AARON RAPP Room: [address] IN [facility]#: [id number] Admission: 05/31/19 Attend Phys: Sindy Boogie MD Discharge: Date of : 50 Date of Service: 05/31/19 1231 Report #: [id number] THIS REPORT FOR: //name// APPROVED REPORT Study performed: 05/31/2019 10:16:46 EXAM: Comprehensive 2D, Doppler, and color-flow Echocardiogram Patient Location: In-Patient Room #: [facility] Status: routine BSA: 2.23 HR: 51 bpm BP: 109/60 mmHg Rhythm: NSR Other Information Study Quality: Good Indications Atrial Fibrillation Chest Pain 2D Dimensions IVSd: 13.11 (7-11mm) LVOT Diam: 20.48 (18-24mm) LVDd: 55.39 mm PWd: 10.01 (7-11mm) Ascending Ao: 39.03 (22-36mm) LVDs: 28.91 (25-40mm) Aortic Root: 30.02 mm Volumes Left Atrial Volume (Systole) LA ESV Index: 59.80 mL/m2 Aortic Valve AoV Peak Bashir.: 2.65 m/s AO Peak Gr.: 28.19 mmHg AO Mean Gr.: 16.20 mmHg AO V2 VTI: 62.43 cm AI [place]: 1.33 m/s2 AI PHT: 753.68 ms Mitral Valve E/A Ratio: 2.11 MV Decel. Time: 226.[address] [address] 2 D/M-MODE ECHOCARDIOGRAM Name: AARON RAPP Room: [address] IN [facility]#: [id number] Admission: 05/31/19 Attend Phys: Sindy Boogie MD Discharge: Date of : 50 Date of Service: 05/31/19 1231 Report #: [id number] MV E Max Bashir.: 1.26 m/s MV PHT: 65.81 ms MVA (PHT): 3.34 cm2 TDI E/Lateral E': 12.60 E/Medial E': 18.00 Medial E' Bashir.: 0.07 m/s Lateral E' Bashir.: 0.10 m/s Pulmonary Valve PV Peak Bashir.: 0.94 m/s PV Peak Gr.: 3.57 mmHg Tricuspid Valve RAP Estimate: 5.00 mmHg TR Peak Gr.: 60.55 mmHg RVSP: 65.00 mmHg PA Pressure: 65.00 mmHg Left Ventricle The left ventricle is normal size. There is normal LV segmental wall motion. Mild concentric left ventricular hypertrophy. Echo findings are consistent with a left ventricular outflow tract gradient. Left ventricular systolic function is hyperdynamic. LVEF is >70%. Transmitral Doppler flow pattern suggests restrictive physiology. Right Ventricle The right ventricle is normal size. The right ventricular systolic function is normal. Atria Left atrium is severely dilated. The right atrium size is normal. Aortic Valve Aortic valve leaflets are moderately thickened. Mild aortic regurgitation. Mild aortic stenosis. Mitral Valve There is mitral annular calcification. Mild mitral regurgitation. No evidence of mitral valve stenosis. Tricuspid Valve The tricuspid valve is normal in structure. Trace tricuspid regurgitation. Moderate pulmonary hypertension[place] [address] 2 D/M-MODE ECHOCARDIOGRAM Name: AARON RAPP Room: [address] IN [facility]#: [id number] Admission: 05/31/19 Attend Phys: Sindy Boogie MD Discharge: Date of : 50 Date of Service: 05/31/19 1231 Report #: [id number] The pulmonary valve is normal in structure. There is no pulmonic valvular regurgitation. Great Vessels The aortic root is normal in size. IVC is normal in size and collapses >50% with inspiration. Pericardium There is no pericardial effusion. <Conclusion> The left ventricle is normal size. Mild concentric left ventricular hypertrophy. Echo findings are consistent with a left ventricular outflow tract gradient. Left ventricular systolic function is hyperdynamic. LVEF is >70%. Transmitral Doppler flow pattern suggests restrictive physiology. Left atrium is severely dilated. Aortic valve leaflets are moderately thickened. Mild aortic regurgitation. Mild aortic stenosis. Mild mitral regurgitation. Trace tricuspid regurgitation. Moderate pulmonary hypertension. IVC is normal in size and collapses >50% with inspiration. <ELECTRONICALLY SIGNED> By: Aung Kee MD, FACC 05/31/19 1231 1231 1231 Aung Kee MD, FACC /INF
--- NOTE | 2019-05-31 13:52 | CON ---
[address] [address] CONSULTATION Name: AARON RAPP Room: [address] Kristen#: [id number] Admission: 05/31/19 Attend Phys: Sindy Boogie MD Discharge: Date of : 50 Report #: [id number] THIS REPORT FOR: //name// CC: Dru Boogie INDICATION: Recurrent atrial fibrillation and chest pain. HISTORY OF PRESENT ILLNESS: The patient is a very pleasant 68-year-old gentleman, who is well known to myself. He has a history of paroxysmal atrial fibrillation. He has been maintaining sinus rhythm on sotalol 120 mg twice daily. He is chronically anticoagulated with Eliquis and having no bleeding problems. Yesterday, at approximately 10:00 in the evening, he had recurrence of his atrial fibrillation. With this, he had associated midsternal chest discomfort without radiation. The patient's dysrhythmia persisted through the evening. The patient reports presenting to the Emergency Room early this morning. He was given some IV metoprolol for rate control. After transfer to the floor, he converted to sinus rhythm. With this, he had resolution of his discomfort and is back to baseline. In general, he has been doing well from a cardiac standpoint. He has not been having any unstable symptoms. He has not had any recurrence of atrial fibrillation for quite some time. PAST MEDICAL HISTORY: 1. Coronary artery disease with percutaneous coronary intervention to the diagonal branch in 05/2018. 2. Paroxysmal atrial fibrillation. 3. Mild aortic stenosis. 4. Hypertension. 5. Hyperlipidemia. 6. Gout. 7. Obstructive sleep apnea. PAST SURGICAL HISTORY: 1. Right knee replacement. 2. Cervical spinal surgery. 3. Bilateral shoulder arthroscopies. 4. Tonsillectomy. FAMILY HISTORY: Positive for coronary artery disease. SOCIAL HISTORY: The patient is a lifelong nonsmoker. He does not drink alcohol. ALLERGIES: None documented. HOME MEDICATIONS: Tylenol 650 mg q.8 hours p.r.n.; allopurinol 300 mg daily; [place] [address] CONSULTATION Name: AARON RAPP Room: [address]R.#: [id number] Admission: 05/31/19 Attend Phys: Sindy Boogie MD Discharge: Date of : 50 Report #: [id number] Eliquis 5 mg b.i.d.; aspirin 81 mg daily; CoQ10 of 100 mg daily; omega-3 fatty acids 2 tablets daily; Pepcid 20 mg daily; glucosamine-chondroitin complex 3 times daily; hydrocodone/acetaminophen 5/325 one tablet q.6 hours p.r.n.; ibuprofen 200 mg q.6 hours p.r.n.; lisinopril 20 mg daily; Nitrostat 0.4 mg sublingual p.r.n.; Effient 10 mg daily; pravastatin 40 mg at bedtime; sotalol 120 mg p.o. b.i.d.; Maxzide 25 one tablet daily; vitamin B supplement daily; vitamin D supplement daily. PHYSICAL EXAMINATION: VITAL SIGNS: Stable. Blood pressure 109/60; pulse presently 57 and regular. GENERAL: This is a pleasant gentleman in no distress. Mood and affect appropriate. HEENT: The patient is wearing glasses. Extraocular muscles are intact. Mucous membranes are moist. NECK: Shows no jugular venous distention. There are no carotid bruits. CHEST: Reveals clear lung galeas without wheezes or rales. CARDIAC: Reveals a regular rhythm with grade 2/6 systolic ejection murmur heard best at the right upper sternal border. I do not appreciate gallop. ABDOMEN: Reveals normal bowel sounds. The abdomen is soft, nontender. EXTREMITIES: Show no edema. Peripheral pulses 2+ and easily palpable. SKIN: Warm and dry. LABORATORY DATA: A 12-lead EKG on arrival showed atrial fibrillation with a rapid ventricular response rate. There is slight ST segment depression in the inferolateral leads. Subsequent telemetry shows sinus rhythm. Labs are reviewed. Presenting troponin was less than 0.06 with subsequent troponin of 0.08 and 0.07. IMPRESSION AND RECOMMENDATIONS: 1. Atrial fibrillation with rapid ventricular response rate. This is paroxysmal. The patient is chronically anticoagulated. We would continue Eliquis 5 mg b.i.d. The patient is now in sinus rhythm. We will give 160 mg of sotalol this a.m. Repeat echocardiogram. We will follow up this afternoon and continue current rhythm control at this time. 2. Coronary artery disease, presently stable. The patient did have some symptoms of chest discomfort in the setting of rapid ventricular response to his atrial fibrillation. His troponins were minimally elevated. I doubt this represents an acute coronary syndrome and is more likely a type 2 myocardial infarction. 3. Type 2 myocardial infarction due to cardiac strain from atrial fibrillation with rapid ventricular response rate. Troponins are stable. I do not plan an intervention at this time. 4. Hypertension. Blood pressure adequately controlled on current cardiac regimen. 5. Hyperlipidemia. Continue the patient's home statin agent. Recommend goal [facility] [address] [place] [address] CONSULTATION Name: AARON RAPP Room: [address] Yesica Mackenzie.#: [id number] Admission: 05/31/19 Attend Phys: Sindy Boogie MD Discharge: Date of : 50 Report #: [id number] LDL of 70 or less. 6. Mild aortic stenosis, presently clinically stable. Recommend serial echocardiograms through the outpatient office. 7. Hypercoagulable state due to atrial fibrillation. The patient is chronically anticoagulated. 8. Chronic anticoagulation. The patient is having no bleeding problems on Eliquis 5 mg b.i.d. <ELECTRONICALLY SIGNED> By: Aung Kee MD, FACC 05/31/19 1352 0839 0917Aung Kee MD, FACC /nt
--- NOTE | 2019-05-31 16:15 | EKG ---
[place] [address] ELECTROCARDIOGRAM REPORT Name: AARON RAPP Room: [address] M.R.#: [id number] Admission: 05/31/19 Attend Phys: Sindy Boogie MD Discharge: 05/31/19 Date of : 50 Report #: [id number] THIS REPORT FOR: //name// [facility] ED Test Date: 2019-05-31 Test Time: 01:42:34 Pat Name: AARON CRAWFORDB Department: Room: [facility] Gender: M Clinical Account Executive: : 1950 Requested By: Jhony Hilliard Order Number: [id number] MD: Aung Kee Measurements Intervals [place] Rate: 110 P: SC: QRS: 43 QRSD: 84 T: -22 QT: 292 QTc: 396 Interpretive Statements Atrial fibrillation Ventricular premature complex Borderline repol abnormality, diffuse leads Compared to ECG 05/16/2018 08:58:30 Ventricular premature complex(es) now present Sinus rhythm no longer present Left ventricular hypertrophy no longer present ST (T wave) deviation no longer present Electronically Signed On 05-31-2019 16:15:35 CDT by Aung Kee [email or web address] <ELECTRONICALLY SIGNED> By: Aung Kee MD, FACC 05/31/19 1615 1 1 Aung Kee MD, FACC /EPI
== END 2019-05-31 14:56 | disposition home or self-care (01) ==
LOC: M.ERS 01:39 → M.2W 02:29 → M.TBA-ER 02:29 → M.2W 02:29
PROVIDERS: Family Medicine; ADMIT Family Medicine
DX: I48.2 Chronic atrial fibrillation (principal); D68.69 Other thrombophilia; I21.4 Non-ST elevation (NSTEMI) myocardial infarction; I25.10 Atherosclerotic heart disease of native coronary artery without angina pectoris; G47.33 Obstructive sleep apnea (adult) (pediatric); I12.9 Hypertensive chronic kidney disease with stage 1 through stage 4 chronic kidney disease, or unspecified chronic kidney disease; N18.2 Chronic kidney disease, stage 2 (mild); M17.12 Unilateral primary osteoarthritis, left knee; F17.210 Nicotine dependence, cigarettes, uncomplicated; Z79.82 Long term (current) use of aspirin; Z79.899 Other long term (current) drug therapy

== ENCOUNTER 2019-06-16 22:19 | Inpatient (IN) | payer MEDICARE, OTHER ==
[~2019-06-16] VITALS: Ht 172.7 cm; Wt 113.8 kg
[~2019-06-16 22:19] MED LIST changes: +APAP650 PO; +CURCUMIN1 GM PO; +IBUPROFEN 200200 M1 PO; +NORCO 5-325 TA1 EAC1 PO; +TRIAMTERENE-HC1 EAC2 PO; +TURMERIC500 M2 PO; +ZYLOPRIM300 MG PO
[2019-06-16 22:23] VITALS: BP 126/64
[2019-06-16] MEDS ORDERED: PROCARDIA XL60 MG PO (22:28)
[2019-06-16 22:50] LABS: ABSOLUTE EOSINOPHILS 0.1 thou/uL (0.0-0.7); ABSOLUTE LYMPHOCYTES 1.3 thou/uL (0.8-5.3); ABSOLUTE MONOCYTES 1.7 thou/uL (0.0-1.2); ABSOLUTE NEUTROPHILS 8.1 thou/uL (1.6-8.1); BASOPHILS 0.4 %; EOSINOPHILS 0.6 %; HEMATOCRIT 41.4 % (42.0-52.0); HEMOGLOBIN 14.4 gm/dL (14.0-18.0); LYMPHOCYTES 11.7 %; MCH 33.9 pg (26.0-34.0); MCHC 34.8 g/dL (28.0-37.0); MCV 97.2 fL (80.0-100.0); MONOCYTES 15.3 %; MPV 7.3 fl. (7.2-11.1); NUCLEATED RBCS 0 /100WBC; PLATELET COUNT* 239 thou/uL (150-400); RBC 4.26 mil/uL (4.50-6.00); RDW-CV 13.1 % (10.5-14.5); WBC 11.3 thou/uL (4.0-11.0)
[2019-06-16 22:57] LABS: INR 1.1; PROTIME 11.4 Seconds (9.20-11.50)
[2019-06-16 23:05] LABS: CALCIUM 9.6 mg/dL (8.5-10.1); CREATININE 1.2 mg/dL (0.6-1.3); POTASSIUM 3.7 mmol/L (3.5-5.1)
[2019-06-16 23:09] LABS: ALBUMIN 4.1 g/dL (3.4-5.0); TOTAL BILIRUBIN 2.4 mg/dL (<0.1-1.0)
[2019-06-16 23:45] LABS: INFLUENZA A ANTIGEN Negative (Negative); INFLUENZA B ANTIGEN Negative (Negative)
[2019-06-17] VITALS (23 sets, daily range): BP systolic 102–154; BP diastolic 43–81
[2019-06-17 00:36] LABS: BE -0.1 mmol/L (-2 to +3); PCO2 29.7 mmHg (35.0-45.0); pH 7.489 (7.340-7.450)
[2019-06-17 00:42] LABS: PO2 50.6 mmHg (75.0-100.0)
--- NOTE | 2019-06-17 01:43 | NUR ---
PT ASSISTED TO BSC STANDBY ASSIST, LARGE SOFT STOOL, LIGHT BROWN, REMAINED ON BIPAP TOLERATED SAT 98% HR TRACING SR
[2019-06-17 03:46] LABS: BE -0.7 mmol/L (-2 to +3); PCO2 33.2 mmHg (35.0-45.0); PO2 76.8 mmHg (75.0-100.0)
--- NOTE | 2019-06-17 06:28 | NUR ---
RECIEVED FROM ER AT 0255H, PUT IN BED 2 AND HOOKED TO PROJECT DEVELOPMENT ENGINEER.BP WAS GOOD AND SAT WAS 95% AT BIPAP 70%.NOTED PT HAS BILATERAL LEGS PITTING EDEMA.NO DISTRESS NOTED.CONTINUE MONITONG AND TOWARD GOAL.
--- NOTE | 2019-06-17 08:54 | NUR ---
9405 ASSUMED CARE OF PATIENT. PLEASE SEE DOCUMENTED ASSESSMENT. DR HALEY TO SEE PATIENT. OFF BIPAP TO 6LPM NASAL CANNULA TO CONVERSE AND TO USE COMMODE.
--- NOTE | 2019-06-17 08:56 | NUR ---
DR CALDWELL TO SEE PATIENT.
--- NOTE | 2019-06-17 10:27 | NUR ---
STAT LAB RESULTS TO DR CALDWELL. SEEN BY SOLAR PHOTOVOLTAIC CREW LEAD
--- NOTE | 2019-06-17 13:25 | NUR ---
ABLE TO TOLERATE BEING OFF OF BIPAP AND ON NASAL CANNULA.
--- NOTE | 2019-06-17 17:27 | NUR ---
PATIENT PROGRESSING TOWARDS GOALS. NOW ABLE TO HOLD OXYGENATION SATURATIONS AT 90% OR GREATER WHEN OFF OF BIPAP. SAYS HE FEELS BETTER. DIURESED AND ABLE TO EAT. PLAN IS TO CONTINUE ANTIBIOTICS,BIPAP AT NIGHT AND ECHO,CHEST FILM TOMORROW. FAMILY HAS VISITED
[2019-06-18] VITALS (8 sets, daily range): BP systolic 105–146; BP diastolic 57–69
--- NOTE | 2019-06-18 00:55 | NUR ---
Pt reports feeling better. Downgraded to telemetry status. Report given to Shannon DIAZ; pt transferred to Telemetry per wc @ 0760. VSS.
--- NOTE | 2019-06-18 02:49 | NUR ---
TRANSFERED FROM ICU TO 233 AT 0100. AGREE WITH ICU ASSESSMENT. TELEMETRY SHOWS SB. ON BIPAP. 6 LITERS HIGH FLOW.
[2019-06-18 04:57] LABS: ABSOLUTE EOSINOPHILS 0.2 thou/uL (0.0-0.7); ABSOLUTE LYMPHOCYTES 1.4 thou/uL (0.8-5.3); ABSOLUTE MONOCYTES 1.1 thou/uL (0.0-1.2); ABSOLUTE NEUTROPHILS 4.1 thou/uL (1.6-8.1); BASOPHILS 0.3 %; EOSINOPHILS 2.6 %; HEMATOCRIT 34.8 % (42.0-52.0); LYMPHOCYTES 20.2 %; MCH 34.1 pg (26.0-34.0); MCHC 34.5 g/dL (28.0-37.0); MONOCYTES 16.6 %; MPV 7.2 fl. (7.2-11.1); NUCLEATED RBCS 0 /100WBC; PLATELET COUNT* 191 thou/uL (150-400); POLYS 60.3 %; RBC 3.52 mil/uL (4.50-6.00); RDW-CV 13.3 % (10.5-14.5); WBC 6.8 thou/uL (4.0-11.0)
[2019-06-18 05:33] LABS: CALCIUM 8.8 mg/dL (8.5-10.1); CREATININE 1.3 mg/dL (0.6-1.3); MAGNESIUM 2.3 mg/dL (1.8-2.4); POTASSIUM 3.6 mmol/L (3.5-5.1)
--- NOTE | 2019-06-18 08:08 | CON ---
[address] [address] CONSULTATION Name: AARON RAPP Room: [place] [address] ADM IN M.R.#: [id number] Admission: 06/17/19 Attend Phys: Denise Mo Discharge: Date of : 50 Report #: [id number] THIS REPORT FOR: //name// CC: Dru Sanchez DATE OF SERVICE: 06/17/2019 REFERRING PHYSICIAN: Heladio Aly M.D. REASON FOR EVALUATION: Acute respiratory failure. Cough and obstructive sleep apnea. HISTORY OF PRESENT ILLNESS: The patient is a very pleasant 68-year-old gentleman who is a remote smoker. He was recently admitted for atrial fibrillation with RVR, recently discharged on 05/31/2019. He came back with abdominal bloating and worsening shortness of breath over the last 1 week. He states for the last one week, he has been complaining of progressive shortness of breath, came into the Emergency Room, was extremely hypoxemic, required 6 liters, did not have hypercapnia. He has associated cough, mostly dry. Denies any chest pain. Denies any mucus production. However, he had chills, documented fever of 38.6. He has abdominal bloating. He had constipation for 1 week since yesterday. He had 2 bowel movements, two of them were consistent with watery/diarrhea. His CT abdomen, which I have reviewed, shows esophageal thickening. Other changes were noted. Chest x-ray shows bilateral patchy infiltrate, worse on the right side. Also, there was a bilateral effusion, worse on the right on his CT of the abdomen. He does not have obstructive sleep apnea. He is on CPAP. He is compliant. He is on CPAP of 6. His sleep study was done in 2016 and shows moderate obstructive sleep apnea with apnea-hypopnea index of 25, which was controlled on CPAP of 7. He is a remote smoker, smoked for around 5 years. He smoked 1-2 cigars a day; however, this was over 30 years ago. PAST MEDICAL HISTORY: Gout, hypertension, chronic atrial fibrillation, coronary artery disease, post-angioplasty, right knee replacement, obstructive sleep apnea. PAST SURGICAL HISTORY: Cervical bone surgery, right knee replacement, history of angioplasty. FAMILY HISTORY: [place] [address] CONSULTATION Name: DIONTEAARONPEGGY CARTER Room: [address] IN [facility].#: [id number] Admission: 06/17/19 Attend Phys: Denise Mo Discharge: Date of : 50 Report #: [id number] SOCIAL HISTORY: Quit smoking, used to smoke a few cigarettes and occasional cigar a day, quit smoking more than 30 years ago, smoked for around 5 years. He drinks alcohol occasionally weekly. REVIEW OF SYSTEMS: Fourteen systems reviewed, significant for bloating, constipation. At this time, he is having more diarrhea. History of fever, chills. Denies hemoptysis, denies headache. Denies blurring of vision. Mental status is adequate. Denies chest pain. No history of runny nose. PHYSICAL EXAMINATION: GENERAL: The patient is pleasant, not in distress. VITAL SIGNS: Stable; however, temperature on 06/16/2019 when he first came in 38.6, currently 36.7. His pulse is 54, respiratory rate 25, blood pressure 127/61, was on BiPAP; however, when I took him off BiPAP to discuss with him, he desaturated on 7 liters to the mid 80s. EYES: Nonicteric. HEAD AND NECK: Supple. Mucous membranes were clear. CHEST: He has crackles, inspiratory, worse on the right side. No wheezing. CARDIOVASCULAR: He has systolic murmur, no added sounds. It is more regular at this time. ABDOMEN: Soft, distended. No tenderness though. EXTREMITIES: Trace edema. PSYCHIATRIC: Alert, oriented, pleasant. NEUROLOGIC: No focal deficit. SKIN: No changes. LABORATORY DATABASE: White blood cell count 11.3, hemoglobin 14.4, platelets were normal at 239. Chem-7, creatinine 1.2, otherwise unremarkable. CK-MB 9.6. ProBNP 2259. Prealbumin was low. TSH was high 3.9. This was done on 05/14/2018 though. No recent TSH. Prealbumin is old too. Arterial blood gas, pH 7.4, pCO2 of 33, pO2 of 76, bicarbonate 22. His O2 saturation was 70%, 12/6. ASSESSMENT AND PLAN: Acute hypoxemic respiratory failure, suspect pulmonary edema. CT abdomen shows bilateral effusion; however, too small to tap, worse on the right side. He has bilateral patchy hazy infiltrate. Differential diagnosis includes pneumonia with developing acute respiratory distress syndrome. He had recent hospitalization, had fever, mild leukocytosis. At this point, I will start vancomycin, cefepime and Flagyl. Obstructive sleep apnea. He is supposed to be on CPAP of 7. At this time, with his acute respiratory failure and pulmonary edema, we will start BiPAP at 14/7, which should be also adequate to control his sleep apnea. [address] [address] CONSULTATION Name: AARON RAPP Room: [address] IN [facility]#: [id number] Admission: 06/17/19 Attend Phys: Denise Mo Discharge: Date of : 50 Report #: [id number] Congestive heart failure, recent admission, had normal ejection fraction. Cardiology are following. They are planning to do another echo. Discussed with Cardiology. Defer to Cardiology. Defer diuresis to Cardiology. He is on Lasix, which was ordered today by Cardiology. We will obtain chest x-ray in the morning. We will also obtain arterial blood gas in the morning. At this time, continue antibiotics. If he continues to have diarrhea, consider to check for C. diff. Esophageal disease has esophageal thickening, though he does not have nausea or vomiting concerning for possible aspiration. PLAN: As above. 1. Start antibiotics. 2. Chest x-ray in the morning. 3. Diuresis per Cardiology. 4. BiPAP changed 18/03. 5. Blood gas and chest x-ray in the morning. Critical care time taking care of the patient was 45 minutes. <ELECTRONICALLY SIGNED> By: Kimber Trorez MD 06/18/19 0808 1030 [id number] Taras Guerrero MD /nt
--- NOTE | 2019-06-18 11:07 | EKG ---
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[place] : 1950 Requested By: Georgiana Holcomb Order Number: [id number] MD: Fredo Gonzalez Measurements Intervals [place] Rate: 82 P: 71 [place]: 169 QRS: 43 QRSD: 84 T: 59 QT: 382 QTc: 446 Interpretive Statements Sinus rhythm Probable LVH with secondary repol abnrm Baseline wander in lead(s) V4,V5 Compared to ECG 05/31/2019 01:42:34 Atrial fibrillation no longer present Ventricular premature complex(es) no longer present Electronically Signed On 06-18-2019 11:07:12 CDT by Fredo Gonzalez [email or web address] <ELECTRONICALLY SIGNED> By: Fredo Gonzalez MD, FACC 06/18/19 1107 24 24 Fredo Gonzalez MD, FACC /EPI
--- NOTE | 2019-06-18 11:09 | EKG ---
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
--- NOTE | 2019-06-18 11:57 | NUR ---
MET WITH PT TO DISCUSS HOME SITUATION/DC PLANNING. PT LIVES WITH . HE IS NORMALLY INDEPENDENT AND ACTIVE. USES CPAP AT NIGHT. HE HASN'T HAD HH OR BEEN TO SNF IN PAST. DISCUSSED DPOA, DOESN'T WANT TO COMPLETE AT THIS TIME. PT PLANS TO RETURN HOME AT DC. WILL FOLLOW FOR POSSIBLE NEEDS
[2019-06-18 22:07] LABS: CALCIUM 8.7 mg/dL (8.5-10.1); CREATININE 1.2 mg/dL (0.6-1.3); MAGNESIUM 2.2 mg/dL (1.8-2.4); POTASSIUM 3.7 mmol/L (3.5-5.1)
[2019-06-18 22:30] LABS: URINE BILIRUBIN NEGATIVE (Negative); URINE BLOOD 2+ (Negative); URINE CLARITY CLEAR; URINE COLOR YELLOW; URINE GLUCOSE-RANDOM NEGATIVE (Negative); URINE KETONES NEGATIVE (Negative); URINE LEUKOCYTES-REFLEX NEGATIVE (Negative); URINE NITRITE-REFLEX NEGATIVE (Negative); URINE PROTEIN NEGATIVE (Negative); URINE UROBILINOGEN 0.2 E.U./dl (0.2-1.0)
[2019-06-18 22:45] LABS: MUCUS None Seen strn/LPF (None Seen); SQUAMOUS NONE SEEN /LPF (0-3)
[2019-06-18 22:46] LABS: BACTERIA-REFLEX 1-9 Few /HPF (None Seen); CASTS None Seen /LPF (None Seen); CRYSTALS None Seen /LPF (None Seen); URINE RBC 3-10 Few /HPF (0-2); URINE WBC-REFLEX 0-5 Rare /HPF (0-5)
[2019-06-19 00:48] VITALS: BP 92/66
--- NOTE | 2019-06-19 03:13 | NUR ---
PT ALERT OIRENTED. UP AD REYES TO BR. VOIDS PER URINAL. TELEMETRY SHOWS SB/SR. TYLENOL GIVEN FOR SHOULDER PAIN ASSOCIATED WITH ARTHRITIS. ELECTOLYTE PROTOCAL STARTED AND LABS CHECKED. WNL. O2 AT 3 LITERS NC. HOME CPAP FOR SLEEP WITH 3 LITER O2 BLEED IN.
[2019-06-19 04:17] VITALS: BP 143/71
[2019-06-19 05:09] LABS: CALCIUM 8.8 mg/dL (8.5-10.1); CREATININE 1.1 mg/dL (0.6-1.3); POTASSIUM 3.6 mmol/L (3.5-5.1)
--- NOTE | 2019-06-19 06:14 | NUR ---
PT HAVING A FLARE UP OF R ANKLE PAIN FROM GOUT. ORDER FOR ALLOPURINOL DAILY OBTAINED AND GIVEN.
[2019-06-19 08:27] VITALS: BP 142/71
[2019-06-19 11:25] VITALS: BP 142/71
[2019-06-19 12:20] VITALS: BP 115/64
--- NOTE | 2019-06-19 13:42 | CON ---
[address] [address] CONSULTATION Name: RAPP,AARON CARTER Room: [place] [address] ADM IN M.R.#: [id number] Admission: 06/17/19 Attend Phys: Denise Mo Discharge: Date of : 50 Report #: [id number] THIS REPORT FOR: //name// CC: Dru Sanchez DATE OF SERVICE: 06/17/2019 CARDIOLOGY CONSULTATION HISTORY OF PRESENT ILLNESS: I was asked by Dr. Sanchez to see this 68-year-old white male in Cardiology consultation for evaluation and treatment of acute onset of probable congestive heart failure. Additionally, this man has pulmonary hypertension, pulmonary edema, essential hypertension, paroxysmal atrial fibrillation, hypercholesterolemia, gout, degenerative joint disease, coronary artery disease and he is status post 2 previous stents. He was started on nifedipine on 06/14/2019 and since then developed progressive shortness of breath. He was taken off triamterene/hydrochlorothiazide at that time. These drugs were given for his blood pressure. He became increasingly short of breath. He had orthopnea. He had paroxysmal nocturnal dyspnea and edema as well as abdominal swelling. He came into the Emergency Room and there was found to have multiple infiltrates on his chest x-ray and subsequently underwent a CT of the chest. The chest x-ray showed patchy bilateral airspace disease with mid and lower lung predominance suggesting pulmonary edema or multifocal pneumonia. Of notice, this man did have cough and chills and fever 2 days ago. His temperature was around 100. He has still been in that range since he has been here. He was 101.[address] showed small bilateral pleural effusions and there were patchy ground-glass opacities within the lower lungs, more so in the right middle lobe and there was more dependent band-like consolidation within the inferior lower lobes, right greater than left. Of note is additionally, this man has mild aortic stenosis and on his most recent echo from about 3 weeks ago, he did have a left ventricular outflow tract obstruction. However, I cannot find the degree of obstruction on the echo report. His diastolic function was felt to be restrictive on this study. His abdominal CT did show some circumferential wall thickening in the distal esophagus, which may correlate with esophagitis and there was fluid within the cecum, ascending colon, and proximal transverse colon. This man does have angina, but only when he goes into atrial fibrillation, which is not very often. He does not have exertional angina, but he does have some chronic dyspnea on exertion. He also does have edema sometimes. He is much better since he got 40 of Lasix last night. He has got another 40 this morning. His EKG showed normal sinus rhythm with left ventricular hypertrophy and borderline QT prolongation. His troponin was normal. An NT-proBNP was 3115. He was quite hypoxemic when he came in with a pO2 of 50.6. This man does have sleep apnea and is on CPAP at home. This man has not had syncope. Coronary risk factors include past history [place], [place] [address] CONSULTATION Name: AARON RAPP Room: [address] IN [facility].#: [id number] Admission: 06/17/19 Attend Phys: Denise Mo Discharge: Date of : 50 Report #: [id number] he quit 30 years ago. He does have hypercholesterolemia and high blood pressure, but not diabetes. There is no family history of coronary disease. He has not had renal disease or peripheral vascular disease. He has never had a stroke or TIA. He does have pain in his legs when he walks, which seems to be arthritis. He does not seem to have claudication. He does not have any open or nonhealing wounds. There is no family history of coronary disease or any kind of heart disease. FAMILY HISTORY: Unremarkable. SOCIAL HISTORY: He is . He is retired. Has 3-6 alcoholic beverages per week. Does not smoke. Does not use illegal drugs. ALLERGIES: He has no known allergies. MEDICATIONS: Include allopurinol 300 mg daily, Eliquis 5 mg b.i.d., aspirin 81 mg daily, Pepcid 20 mg daily, [place] 1 q. 4 hours p.r.n. pain, ibuprofen 200 mg q. 4 hours p.r.n. pain, lisinopril 20 mg at bedtime, Procardia or nifedipine 60 mg extended release daily; he has not had one since yesterday, however, p.r.n. nitroglycerin, omega-3 fatty acids 1000 mg b.i.d., pravastatin 40 mg at bedtime, sotalol 80 mg b.i.d. REVIEW OF SYSTEMS: Positive for asthma and wheezing, chest discomfort, shortness of breath with exercise, shortness of breath after lying down, waking up short of breath and a history of a heart murmur, apparently he has aortic stenosis. He wears glasses. Otherwise, his review of systems is negative for some 30 different complaints and 14 different system categories, including central nervous system, general, respiratory, cardiovascular, endocrine, gastrointestinal, genitourinary, hematologic, lymphatic, allergic, immunologic, psychiatric, musculoskeletal, skin, eyes, ears, nose, mouth, and throat. Please see review of system form for details of the review of systems. PHYSICAL EXAMINATION: GENERAL: He presents as a well-developed, well-nourished white male, in no acute distress. VITAL SIGNS: His temp this morning was 98.8, pulse was 56 and regular, blood pressure was 120/51, respirations are 21 and regular. HEENT: His head was atraumatic. Eyes clear. NECK: Supple. There is no jugular venous distention or hepatojugular reflux. Thyroid is not enlarged. There is no adenopathy. SKIN: Warm and dry. Mucous membranes are moist. LUNGS: Reveal decreased breath sounds bilaterally in the bases that were impressive and there were generally decreased breath sounds bilaterally. There is increased expiratory phase as well. There were no wheezes. HEART: Revealed normal first and second heart sound. There was soft S4. There was no S3. There was a 2/6 systolic ejection-type [place] [address] CONSULTATION Name: AARON RAPP Room: [address] IN [facility]#: [id number] Admission: 06/17/19 Attend Phys: Denies Mo Discharge: Date of : 50 Report #: [id number] mitral and aortic area, but heard best in the mitral area. It seemed to increase slightly with Valsalva. The rhythm was regular. The rate was approximately 60. PMI is not displaced. ABDOMEN: Soft, flat and nontender. No palpable masses. No organomegaly. EXTREMITIES: Reveal no cyanosis, clubbing, or edema. NEUROLOGIC: The patient mentated normally, he talked normally, moved all extremities normally. IMPRESSION: 1. Acute congestive heart failure secondary to diastolic dysfunction. 2. Pulmonary edema. 3. Pulmonary hypertension. 4. Essential hypertension. 5. Paroxysmal atrial fibrillation. 6. Hypercholesterolemia. 7. Gout. 8. Degenerative joint disease. 9. Coronary artery disease. 10. Status post coronary stent. 11. Obstructive sleep apnea. 12. Mild aortic stenosis. 13. Restrictive pattern of diastolic dysfunction on his echo. 14. 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 PLAN: We will continue to diurese him at this point. We will withhold the nifedipine. We will keep him well oxygenated. Thank you very much for asking me to see the patient. If there are any questions, please feel free to contact me. <ELECTRONICALLY SIGNED> By: Fredo Gonzalez MD, FACC 06/19/19 1342 1027 1106F. Alvaro Leon MD, FACC /nt
--- NOTE | 2019-06-19 14:23 | NUR ---
VSS, ASSUMED CARE IN THE AM, ASSESSMENT PERFORMED AND CHARTED, FALL PRECAUTIONS IN PLACE AND CALL LIGHT IN REACH, PT IS A&O4 AND IS TRACING SR ON THE MONITOR, PT IS ON 2L NC AND HE IS UP AD REYES, HIS GOAL IS TO TAKE A SHOWER TODAY, WILL FOLLOW WITH PLAN OF CARE,
[2019-06-19 16:53] VITALS: BP 151/68
[2019-06-20 00:03] VITALS: BP 128/65
[2019-06-20 00:39] VITALS: BP 137/68
[2019-06-20 04:00] VITALS: BP 155/79
--- NOTE | 2019-06-20 06:24 | NUR ---
PT RESTED COMFORTABLY T/O NIGHT. PAIN MANGED PER EPRN. MEDS ADMINISTERED VIA EMAR. PT PROGRESSING TOWARDS GOALS. CALL LIGHT WITHIN REACH
[2019-06-20 08:00] VITALS: BP 136/70
[2019-06-20 10:06] LABS: ABSOLUTE EOSINOPHILS 0.2 thou/uL (0.0-0.7); ABSOLUTE MONOCYTES 0.9 thou/uL (0.0-1.2); BASOPHILS 0.3 %; EOSINOPHILS 2.4 %; HEMATOCRIT 38.3 % (42.0-52.0); HEMOGLOBIN 13.6 gm/dL (14.0-18.0); LYMPHOCYTES 14.5 %; MCH 34.6 pg (26.0-34.0); MCHC 35.4 g/dL (28.0-37.0); MCV 97.6 fL (80.0-100.0); MONOCYTES 13.1 %; MPV 6.6 fl. (7.2-11.1); NUCLEATED RBCS 0 /100WBC; PLATELET COUNT* 230 thou/uL (150-400); POLYS 69.7 %; RBC 3.92 mil/uL (4.50-6.00); RDW-CV 12.9 % (10.5-14.5); WBC 7.2 thou/uL (4.0-11.0)
[2019-06-20 10:18] LABS: ALBUMIN 3.4 g/dL (3.4-5.0); CALCIUM 9.3 mg/dL (8.5-10.1); CREATININE 1.1 mg/dL (0.6-1.3); POTASSIUM 3.8 mmol/L (3.5-5.1); TOTAL BILIRUBIN 0.7 mg/dL (<0.1-1.0)
--- NOTE | 2019-06-20 12:13 | NUR ---
CHF MEDICATION DISCHARGE EDUCATION: PATIENT WAS PROVIDED AN EDUCATION HANDOUT. THE MEDICATION LISINOPRIL WAS DISCUSSED REGARDING HOW TO TAKE, SIDE EFFECTS, AND HOW IT WORKS. ALL QUESTIONS AND CONCERNS WERE ADDRESSED. THANK YOU.
--- NOTE | 2019-06-20 12:14 | NUR ---
ORDER NOTED FOR DC. PT UP AND AMBULATED WITH THERAPY AND RT, DID NOT QUALIFY FOR O2. PT DECLINES HH. PLANS TO RETURN HOME WITH
--- NOTE | 2019-06-20 13:52 | NUR ---
ASSUMED PT CARE AT 0730. ASSESSMENT COMPLETED CHARTED. ABLE TO MAKE NEEDS KNOWN. UP AD REYES. C/O SHOULDER PAIN AND LEFT ANKLE PAIN AND GAVE PRN PAIN MEDICATION. DISCHARGE APPROVED AND GAVE DISCHARGE PAPERWORK, TOOK OUT IV, TOOK OFF HEART MONITOR. NO COMMENTS, QUESTIONS, OR CONCERNS. TRANSFERRED DOWN TO WIFES CAR BY WHEELCHAIR WITH HELP OF VOLUNTEERS.
[2019-06-20] MEDS ORDERED: CEFDINIR300 MG PO (14:42)
[2019-06-20] MEDS ORDERED: DYAZIDE 37.5-21 EACH PO (14:43)
== END 2019-06-20 13:50 | disposition home or self-care (01) | DRG 177 ==
LOC: M.ERS 22:19 → M.TBA-ER 06-17 00:56 → M.2W 06-17 00:56 → M.ICU 06-17 02:27 → M.2W 06-18 01:00
PROVIDERS: Emergency Medicine; Internal Medicine; Internal Medicine Cardiovascular Disease; ADMIT Internal Medicine
PROC: 3E0234Z Introduction of Serum, Toxoid and Vaccine into Muscle, Percutaneous Approach (ICD-10-PCS; principal; 2019-06-17)
PROC: 5A09357 Assistance with Respiratory Ventilation, Less than 24 Consecutive Hours, Continuous Positive Airway Pressure (ICD-10-PCS; principal; 2019-06-17)
PROC: 5A09357 Assistance with Respiratory Ventilation, Less than 24 Consecutive Hours, Continuous Positive Airway Pressure (ICD-10-PCS; 2019-06-18)
PROC: 5A09357 Assistance with Respiratory Ventilation, Less than 24 Consecutive Hours, Continuous Positive Airway Pressure (ICD-10-PCS; 2019-06-20)
DX: J15.6 Pneumonia due to other Gram-negative bacteria (principal); J96.01 Acute respiratory failure with hypoxia; I50.31 Acute diastolic (congestive) heart failure; I48.91 Unspecified atrial fibrillation; I11.0 Hypertensive heart disease with heart failure; M10.9 Gout, unspecified; Z96.651 Presence of right artificial knee joint; G47.33 Obstructive sleep apnea (adult) (pediatric); F17.210 Nicotine dependence, cigarettes, uncomplicated; I27.20 Pulmonary hypertension, unspecified; I48.0 Paroxysmal atrial fibrillation; E78.00 Pure hypercholesterolemia, unspecified; M19.90 Unspecified osteoarthritis, unspecified site; I25.10 Atherosclerotic heart disease of native coronary artery without angina pectoris; K22.9 Disease of esophagus, unspecified; I08.0 Rheumatic disorders of both mitral and aortic valves; Z95.5 Presence of coronary angioplasty implant and graft; Z90.89 Acquired absence of other organs; Z79.899 Other long term (current) drug therapy; Z79.82 Long term (current) use of aspirin; Z99.81 Dependence on supplemental oxygen; Z23 Encounter for immunization

== ENCOUNTER 2020-04-25 22:27 | Emergency (ER) | payer MEDICARE, OTHER ==
[~2020-04-25] VITALS: Ht 172.7 cm; Wt 99.8 kg
[~2020-04-25 22:27] MED LIST changes: +CEFDINIR300 MG PO; +DYAZIDE 37.5-21 EACH PO; +PROCARDIA XL60 MG PO
[2020-04-25] MEDS ORDERED: LISINOPRIL40 MG PO (22:37)
[2020-04-25 23:07] LABS: ABSOLUTE BASOPHILS 0.1 thou/uL (0.0-0.2); ABSOLUTE EOSINOPHILS 0.4 thou/uL (0.0-0.7); ABSOLUTE LYMPHOCYTES 1.3 thou/uL (0.8-5.3); ABSOLUTE MONOCYTES 1.1 thou/uL (0.0-1.2); ABSOLUTE NEUTROPHILS 6.7 thou/uL (1.6-8.1); BASOPHILS 0.8 %; EOSINOPHILS 3.9 %; HEMATOCRIT 41.5 % (42.0-52.0); HEMOGLOBIN 14.8 gm/dL (14.0-18.0); LYMPHOCYTES 13.8 %; MCH 35.1 pg (26.0-34.0); MCHC 35.6 g/dL (28.0-37.0); MCV 98.5 fL (80.0-100.0); MONOCYTES 11.2 %; NUCLEATED RBCS 0 /100WBC; PLATELET COUNT* 239 thou/uL (150-400); POLYS 70.3 %; RBC 4.21 mil/uL (4.50-6.00); RDW-CV 13.3 % (10.5-14.5); WBC 9.6 thou/uL (4.0-11.0)
[2020-04-25 23:20] LABS: CREATININE 1.4 mg/dL (0.6-1.3); POTASSIUM 3.9 mmol/L (3.5-5.1)
[2020-04-25 23:22] LABS: PROTIME 10.4 Seconds (9.20-11.50)
[2020-04-25 23:30] LABS: ALBUMIN 4.3 g/dL (3.4-5.0); TOTAL BILIRUBIN 0.6 mg/dL (<0.1-1.0); TOTAL PROTEIN 7.6 g/dL (6.4-8.2)
[2020-04-26 01:30] VITALS: BP 120/57
--- NOTE | 2020-04-27 11:50 | EKG ---
[place] [address] ELECTROCARDIOGRAM REPORT Name: AARON RAPP Room: 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1950 Requested By: Georgiana Holcomb Order Number: [id number] MD: Fredo Gonzalez Measurements Intervals [place] Rate: 129 P: [place]: QRS: 29 QRSD: 88 T: 25 QT: 323 QTc: 474 Interpretive Statements Atrial fibrillation Minimal ST depression, lateral leads Compared to ECG 06/17/2019 09:31:35 ST (T wave) deviation now present Sinus rhythm no longer present Electronically Signed On 04-27-2020 11:49:52 CDT by Fredo Gonzalez [email or web address] <ELECTRONICALLY SIGNED> By: Fredo Gonzalez MD, [facility] 04/27/20 1149 2235 Fredo Gonzalez MD, [facility] /EPI
== END 2020-04-26 01:30 | disposition home or self-care (01) ==
LOC: M.ERS 22:27
PROVIDERS: Emergency Medicine
DX: I48.20 Chronic atrial fibrillation, unspecified (principal); I10 Essential (primary) hypertension; M10.9 Gout, unspecified; F17.210 Nicotine dependence, cigarettes, uncomplicated; Z96.651 Presence of right artificial knee joint; Z95.5 Presence of coronary angioplasty implant and graft

== ENCOUNTER → 2020-08-25 | Outpatient (CLI) | payer MEDICARE, OTHER ==
[~2020-08-25] MED LIST changes: +LISINOPRIL40 MG PO
== END ==
LOC: M.LAB 05:41
PROVIDERS: ATTEND Anesthesiology
DX: E87.6 Hypokalemia (principal)

== ENCOUNTER → 2021-04-16 | Outpatient (CLI) | payer MEDICARE, OTHER ==
[2021-04-16 08:51] VITALS: BP 149/82
--- NOTE | 2021-04-16 08:53 | NUR ---
PATIENT CAME FOR CARDIOVERSION, BUT WHEN WE HOOKED HIM TO THE COSMETOLOGY INSTRUCTOR IT SHOWED SINUS THYTHM AND THEN TO CONFIRMED IT WE DID EKG AND IT SHOWED NORMAL SINUS RHYTHM. SO EVERYTHING WAS TOLD TO AND THE PROCEDURE CARDIOVERSION WAS CANCELLED AND PATIENT WAS SENT HOME
--- NOTE | 2021-04-16 10:24 | EKG ---
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 : 1950 Requested By: Aung Kee Order Number: [id number] Reading MD: Fredo Gonzalez Measurements Intervals [place] Rate: 57 P: 46 CO: 199 QRS: 25 QRSD: 97 T: 38 QT: 487 QTc: 475 Interpretive Statements Sinus rhythm Probable left ventricular hypertrophy Compared to ECG 04/25/2020 22:35:56 Atrial fibrillation no longer present ST (T wave) deviation no longer present Electronically Signed On 04-16-2021 10:24:29 CDT by Fredo Gonzalez [email or web address] <ELECTRONICALLY SIGNED> By: Fredo Gonzalez MD, FAC 04/16/21 1024 0843 0843 Fredo Gonzalez MD, [facility] /EPI
== END | disposition home or self-care (01) ==
LOC: M.CL 08:25
PROVIDERS: ATTEND Internal Medicine Cardiovascular Disease
DX: I48.91 Unspecified atrial fibrillation (principal); Z53.8 Procedure and treatment not carried out for other reasons; I11.0 Hypertensive heart disease with heart failure; I50.9 Heart failure, unspecified; I25.10 Atherosclerotic heart disease of native coronary artery without angina pectoris; Z98.890 Other specified postprocedural states; Z79.899 Other long term (current) drug therapy; Z79.01 Long term (current) use of anticoagulants